=== PATIENT | male | born 1940 | race Asian ===

== ENCOUNTER 2024-09-04 17:01 | Emergency (ER) | payer MEDICARE, MEDICAID ==
[~2024-09-04] VITALS: Ht 165.1 cm; Wt 56.0 kg
[~2024-09-04 17:01] MED LIST: ALBU2.5V39 NEB; ASPI-1450 PO; ATOR40TA28 PO; BISA10SU11 PR; CLOP75TA60 PO; IPRA0.2S49 NEB; LOSA-381 PO; MAGN-169 PO; MECL-302 PO; NIFE-129 PO; PANT-31 PO; ZOLP-280 PO
[2024-09-04 17:15] VITALS: TEMP 98.6
[2024-09-04] MEDS: MECLIZINE HCL 25 MG TABLET PO ONE (18:14)
[2024-09-04] MEDS: SODIUM CHLORIDE 0.9% 1,000 ML IV ONE (18:14)
[2024-09-04] MEDS: ONDANSETRON HCL 4 MG/2 ML VIAL IVP ONE (18:14)
[2024-09-04] MEDS: ACETAMINOPHEN 500 MG TABLET PO ONE (18:14)
[2024-09-04 18:34] LABS: BASOPHILS % (AUTO) 0.1 % (0.0-2.0); EOSINOPHILS % (AUTO) 0.1 % (1.0-6.0); HEMATOCRIT 43.9 % (41-53); HEMOGLOBIN 14.3 g/dL (13.5-17.5); LYMPHOCYTES # (AUTO) 0.7 K/uL (1.0-4.8); LYMPHOCYTES % (AUTO) 6.6 % (22.0-44.0); MEAN CORPUSCULAR HEMOGLOBIN 28.4 pg (26.0-34.0); MEAN CORPUSCULAR HGB CONC 32.6 G/dL (31.0-37.0); MEAN CORPUSCULAR VOLUME 87 fL (80-100); MONOCYTES # (AUTO) 0.4 K/uL (0.1-1.0); MONOCYTES % (AUTO) 3.5 % (2.0-9.0); NEUTROPHILS # (AUTO) 9.6 K/uL (1.8-7.7); PLATELET COUNT (AUTO) 171 K/uL (150-450); RED BLOOD CELL COUNT(AUTO) 5.04 MIL/uL (4.50-5.90); RED CELL DISTRIBUTION WIDTH 13.7 % (11.5-14.5); WHITE BLOOD COUNT (AUTO) 10.7 K/uL (4.5-11.0)
[2024-09-04 18:47] LABS: ANION GAP 8 mmol/L (8-16); CALCIUM, TOTAL 8.2 mg/dL (8.8-10.5); CARBON DIOXIDE 27 mmol/L (22-29); CHLORIDE 99 mmol/L (98-107); CREATININE 0.99 mg/dL (0.60-1.30); GLOMERULAR FILTR. RATE CALC > 60 mL/min (>60); GLUCOSE,RANDOM 118 mg/dL (70-110); SODIUM SERUM 134 mmol/L (136-145); UREA NITROGEN, BLOOD 14 mg/dL (7-18)
[2024-09-04 18:49] LABS: NEUTROPHILS % (AUTO) 89.7 % (40.0-70.0)
[2024-09-04 18:55] LABS: TROPONIN I-HIGH SENSITIVITY 68 ng/L (<76)
[2024-09-04] MEDS ORDERED: ONDA-104 PO (20:23)
[2024-09-04] MEDS ORDERED: MECL-134 PO (20:23)
[2024-09-04] MEDS ORDERED: ACET-66 PO (20:23)
[2024-09-04 21:00] VITALS: BP 103/60; PULSE 68; RESP 18; O2SAT 95
== END 2024-09-04 23:27 | disposition home or self-care (01) ==
LOC: EMS 17:01
DX: R42 Dizziness and giddiness (principal); R11.2 Nausea with vomiting, unspecified; F17.210 Nicotine dependence, cigarettes, uncomplicated
CPT/HCPCS: 99285; 96374; 70450; 96361; 80048; 84484; 85025; 36415; 93005; J2405; J7030